=== PATIENT | female | born 1990 | race Caucasian/White ===

== ENCOUNTER 2016-06-21 15:06 | Emergency (ER) | payer MEDICAID ==
--- NOTE | 2016-07-14 21:31 | ER ---
ADMIT: 06/21/2016 RM/LOC: ER [facility] MR#: [id number] [address] [id number] GONZALO COVARRUBIAS [address] [address] Emergency Room Report SEX: F AGE: 26 : 1990 DATE: 06/21/2016 ADDENDUM: The patient comes into the ER because since yesterday, she has had pain in her right ear that she states is quite severe. On physical exam, her TM is red and bulging. She has mild cervical lymphadenopathy on the right side. Posterior pharynx is benign. I wrote a prescription for amoxicillin and tramadol. She is to follow up with her physician in a week if not better. Please see my T sheet. MAURISIO Brito / Aden Loaiza MD / chema JOB #: [id number] CC: Aden Loaiza MD, Attending Physician Linh Adhikari MD, Family Physician
== END 2016-06-21 15:40 | disposition home or self-care (01) ==
LOC: ER 15:06
DX: H66.91 Otitis media, unspecified, right ear (principal); F32.9 Major depressive disorder, single episode, unspecified; F17.210 Nicotine dependence, cigarettes, uncomplicated; Z88.8 Allergy status to other drugs, medicaments and biological substances; Z79.899 Other long term (current) drug therapy